=== PATIENT | female | born 1990 | race Caucasian/White ===

== ENCOUNTER 2016-10-10 18:10 | Emergency (ER) | payer SELFPAY ==
[~2016-10-10] VITALS: Ht 170.2 cm; Wt 62.1 kg
[2016-10-10 18:35] VITALS: BP 121/81
--- NOTE | 2016-10-10 19:23 | NUR ---
XRAY AT BEDSIDE
== END 2016-10-10 20:32 | disposition home or self-care (01) ==
LOC: ER 18:12
DX: J45.909 Unspecified asthma, uncomplicated (principal)
CPT/HCPCS: 71010-TC; A4606; Z7610

== ENCOUNTER 2018-03-27 02:43 | Emergency (ER) | payer MEDICAID ==
[~2018-03-27] VITALS: Ht 170.2 cm; Wt 68.0 kg
[2018-03-27 02:47] VITALS: BP 131/72
[2018-03-27] MEDS ORDERED: DEXAMETHASONE SOD PHOSPHATE 10 MG/ML VIAL ONE (02:58)
[2018-03-27] MEDS ORDERED: ONDANSETRON 4 MG TAB.RAPDIS ONE (02:59)
[2018-03-27] MEDS ORDERED: DEXAMETHASONE SOD PHOSPHATE 4 MG/ML VIAL IM ONE (03:00)
[2018-03-27] MEDS ORDERED: ONDANSETRON 4 MG TAB.RAPDIS SL ONE (03:00)
== END 2018-03-27 03:38 | disposition home or self-care (01) ==
LOC: ER 02:48
DX: T78.1XXA Other adverse food reactions, not elsewhere classified, initial encounter (principal); Z91.010 Allergy to peanuts; J45.909 Unspecified asthma, uncomplicated; X58.XXXA Exposure to other specified factors, initial encounter
CPT/HCPCS: 96372; 99283; A4606; J1100; Q0162; Z7610

== ENCOUNTER 2018-09-24 21:33 | Emergency (ER) | payer MEDICAID ==
[~2018-09-24] VITALS: Ht 170.2 cm; Wt 65.8 kg
[2018-09-24 21:33] VITALS: BP 125/84
[2018-09-24] MEDS ORDERED: ALBUTEROL FS 2.5 MG/0.5 ML VIAL.NEB ONE (22:54)
[2018-09-24] MEDS ORDERED: ALBUTEROL FS 2.5 MG/0.5 ML VIAL.NEB NEB ONE (23:00)
== END 2018-09-24 23:30 | disposition home or self-care (01) ==
LOC: ER 21:40
DX: J98.01 Acute bronchospasm (principal); J06.9 Acute upper respiratory infection, unspecified; Z91.010 Allergy to peanuts
CPT/HCPCS: 71045; 94640; 99283; A4606

== ENCOUNTER 2018-09-25 15:51 | Emergency (ER) | payer MEDICAID ==
[~2018-09-25] VITALS: Ht 170.2 cm; Wt 69.4 kg
[2018-09-25 16:12] VITALS: BP 136/77
--- NOTE | 2018-09-25 16:22 | NUR ---
PT SEEN AND EXAMINED BY CORNELIO PIZARRO.
[2018-09-25] MEDS ORDERED: predniSONE 20 MG TABLET ONE (16:28)
[2018-09-25] MEDS: IPRATROPIUM NEB FS 0.5 MG/2.5 ML AMPUL.NEB NEB ONE (16:30)
[2018-09-25] MEDS ORDERED: ALBUTEROL FS 2.5 MG/3 ML VIAL.NEB ONE (16:36)
[2018-09-25] MEDS ORDERED: IPRATROPIUM NEB FS 0.5 MG/2.5 ML AMPUL.NEB ONE (16:36)
--- NOTE | 2018-09-25 16:39 | NUR ---
RT AT BEDSIDE FOR BREATHING TREATMENT.
[2018-09-25] MEDS: ALBUTEROL FS 2.5 MG/3 ML VIAL.NEB NEB ONE (16:41)
[2018-09-25] MEDS: predniSONE 20 MG TABLET PO ONE (16:41)
--- NOTE | 2018-09-25 17:35 | NUR ---
Patient discharged to home in stable condition. Written and verbal after care instructions given. Patient verbalizes understanding of instruction.
== END 2018-09-25 17:36 | disposition home or self-care (01) ==
LOC: ER 15:57
DX: J06.9 Acute upper respiratory infection, unspecified (principal); J45.909 Unspecified asthma, uncomplicated; Z91.010 Allergy to peanuts
CPT/HCPCS: 94640; 99283; A4606; J7512

== ENCOUNTER 2018-10-04 12:51 | Emergency (ER) | payer MEDICAID ==
[~2018-10-04] VITALS: Ht 170.2 cm; Wt 64.4 kg
--- NOTE | 2018-10-04 12:51 | NUR ---
PT BIB SELF FROM HOME FOR ALLERGICE RXN FROM NUTS; PT AAOX4, RESP EVEN AND UNLABORED, NO SOB, NAD NOTED, VSS, PENDING ER PROVIDER EVAL
[2018-10-04] MEDS ORDERED: FAMOTIDINE/PF INJ 20 MG/2 ML VIAL IV ONE ×2 (13:30→13:56)
[2018-10-04] MEDS ORDERED: ALBUTEROL FS 2.5 MG/0.5 ML VIAL.NEB NEB ONE (13:30)
[2018-10-04] MEDS ORDERED: diphenhydrAMINE HCL 50 MG/ML VIAL IV ONE (13:30)
[2018-10-04] MEDS ORDERED: ONDANSETRON HCL/PF 4 MG/2 ML VIAL IVP ONE (13:30)
[2018-10-04] MEDS ORDERED: methylPREDNISolone SOD SUCC 125 MG/2ML VIAL IV ONE (13:30)
[2018-10-04] MEDS ORDERED: ONDANSETRON HCL/PF 4 MG/2 ML VIAL ONE (13:55)
[2018-10-04] MEDS ORDERED: methylPREDNISolone SOD SUCC 125 MG/2ML VIAL ONE (13:55)
[2018-10-04] MEDS ORDERED: diphenhydrAMINE HCL 50 MG/ML VIAL ONE (13:55)
[2018-10-04] MEDS ORDERED: ALBUTEROL FS 2.5 MG/0.5 ML VIAL.NEB ONE (14:06)
--- NOTE | 2018-10-04 15:34 | NUR ---
Patient discharged to home in stable condition. Written and verbal after care instructions given. Patient verbalizes understanding of instruction. IV removed. Catheter intact and site benign. Pressure and 4x4 applied to site. No bleeding noted.
[2018-10-04 16:10] VITALS: BP 121/70
== END 2018-10-04 16:11 | disposition home or self-care (01) ==
LOC: ER 12:55
DX: T78.1XXA Other adverse food reactions, not elsewhere classified, initial encounter (principal); J45.909 Unspecified asthma, uncomplicated; Z91.010 Allergy to peanuts; X58.XXXA Exposure to other specified factors, initial encounter
CPT/HCPCS: 94640; 96374; 96375; 99283; A4606; J1200; J2405; J2930; J3490

== ENCOUNTER 2018-10-19 02:36 | Emergency (ER) | payer MEDICAID ==
[~2018-10-19] VITALS: Ht 170.2 cm; Wt 65.8 kg
--- NOTE | 2018-10-19 02:39 | NUR ---
PT CAME TO EMERGENCY DEPT. COMPLAINING OF SOB THAT WOULD NOT GO AWAY WITH HER NEBULIZER TREATMENT AT HOME. PT AXO4. PT TALKING IN FULL SENTENCES. +COUGH. PT PUT ON THE CROWN PRESSER AND PULSE OX.
--- NOTE | 2018-10-19 02:45 | NUR ---
CALLED RT FOR BREATHING TREATMENT PER MD ORDER
[2018-10-19] MEDS: DEXAMETHASONE SOD PHOSPHATE 4 MG/ML VIAL IM ONE (03:00)
[2018-10-19] MEDS ORDERED: DEXAMETHASONE SOD PHOSPHATE 10 MG/ML VIAL ONE (03:00)
[2018-10-19] MEDS: ALBUTEROL FS 2.5 MG/0.5 ML VIAL.NEB NEB ONE (03:01)
[2018-10-19] MEDS: IPRATROPIUM NEB FS 0.5 MG/2.5 ML AMPUL.NEB NEB ONE (03:01)
[2018-10-19] MEDS ORDERED: ALBUTEROL FS 2.5 MG/0.5 ML VIAL.NEB ONE (03:22)
[2018-10-19] MEDS ORDERED: IPRATROPIUM NEB FS 0.5 MG/2.5 ML AMPUL.NEB ONE (03:22)
--- NOTE | 2018-10-19 03:24 | NUR ---
RT AT BEDSIDE.
--- NOTE | 2018-10-19 03:46 | NUR ---
Patient discharged to home in stable condition. Written and verbal after care instructions given. Patient verbalizes understanding of instruction. PT AMBULATORY WITH STEADY GAIT.
[2018-10-19 03:47] VITALS: BP 115/72
== END 2018-10-19 03:48 | disposition other institution (70) ==
LOC: ER 02:36
DX: J98.01 Acute bronchospasm (principal); Z91.010 Allergy to peanuts
CPT/HCPCS: 94640; 96372; 99285; J1100

== ENCOUNTER 2019-02-16 06:45 | Emergency (ER) | payer MEDICAID ==
[~2019-02-16] VITALS: Ht 170.2 cm; Wt 65.8 kg
--- NOTE | 2019-02-16 07:01 | NUR ---
PT BIB SELF C/O OF ANXIETY ATTACK, PT IS AAOX4, NOT IN RESPIRATORY DISTRESS, V/S STABLE, KEPT RESTED AND COMFORTABLE, WILL CONTINUE TO MONITOR.
[2019-02-16] MEDS ORDERED: LORAZEPAM 1 MG TABLET ONE (07:14)
--- NOTE | 2019-02-16 07:20 | NUR ---
URINE SPECIMEN COLLECTED AND SENT TO LAB.
[2019-02-16 07:26] LABS: BASOPHILS % (AUTO) 0.5 % (0.0-2.0); EOSINOPHILS % (AUTO) 4.9 % (0.0-6.0); HEMATOCRIT 39 % (33-45); HEMOGLOBIN 12.9 g/dL (11.5-14.8); LYMPHOCYTES # (AUTO) 1.7 /CMM (0.8-4.8); LYMPHOCYTES % (AUTO) 41.8 % (20.0-44.0); MEAN CORPUSCULAR HGB CONC 33 g/dl (31.0-36.0); MEAN CORPUSCULAR VOLUME 92 fL (82-100); MONOCYTES # (AUTO) 0.3 /CMM (0.1-1.30); MONOCYTES % (AUTO) 8.4 % (2.0-12.0); NEUTROPHILS # (AUTO) 1.8 /CMM (1.8-8.9); NEUTROPHILS % (AUTO) 44.4 % (43.0-81.0); PLATELET COUNT (AUTO) 231 /CMM (150-450); RED BLOOD CELL COUNT(AUTO) 4.23 MIL/uL (4.0-5.2)
[2019-02-16 07:27] LABS: APPEARANCE,URINE Clear (CLEAR); BILIRUBIN,URINE Negative (NEGATIVE); BLOOD, URINE Negative Ery/uL (NEGATIVE); COLOR,URINE Yellow (YELLOW); KETONES,URINE Trace (NEGATIVE); LEUKOCYTE ESTERASE ,URINE Negative (NEGATIVE); NITRITE, URINE Negative (NEGATIVE); PROTEIN,URINE Negative (NEGATIVE); UGLUCOSE Negative (NEGATIVE)
[2019-02-16] MEDS ORDERED: LORAZEPAM 1 MG TABLET PO ONE (07:30)
[2019-02-16 07:33] LABS: CALCIUM, SERUM 9.1 mg/dL (8.5-10.1); CREATININE 0.8 mg/dL (0.6-1.3); POTASSIUM 3.7 mmol/L (3.5-5.1)
[2019-02-16 07:35] LABS: BACTERIA,URINE None seen /HPF (None Seen); RBC,URINE 0-1 /HPF (0-2); SQUAMOUS EPITHELIAL CELL,UR Few /HPF (None Seen); WBC,URINE 0-2 /HPF (0-3)
--- NOTE | 2019-02-16 08:10 | NUR ---
PT. VERBALIZED UNDERSTANDING OF AFTERCARE INSTRUCTIONS.Patient discharged to home in stable condition. Written and verbal after care instructions given. Patient verbalizes understanding of instruction.
[2019-02-16 08:11] VITALS: BP 114/68
== END 2019-02-16 08:11 | disposition home or self-care (01) ==
LOC: ER 06:50
DX: R00.2 Palpitations (principal); R53.1 Weakness; J45.909 Unspecified asthma, uncomplicated; Z91.010 Allergy to peanuts
CPT/HCPCS: 36415; 80048-TC; 81000-TC; 84702-TC; 85025-TC

== ENCOUNTER 2022-07-12 18:44 | Emergency (ER) | payer MEDICAID ==
[~2022-07-12] VITALS: Ht 170.2 cm; Wt 72.6 kg
[2022-07-12] MEDS ORDERED: KETOROLAC TROMETHAMINE INJ 30 MG/ML VIAL ONE (20:13)
[2022-07-12] MEDS: KETOROLAC TROMETHAMINE INJ 30 MG/ML VIAL IV ONE (20:16)
[2022-07-12 20:26] LABS: BASOPHILS % (AUTO) 0.2 % (0.0-2.0); EOSINOPHILS % (AUTO) 4.5 % (0.0-6.0); HEMATOCRIT 39 % (33-45); HEMOGLOBIN 12.7 g/dL (11.5-14.8); LYMPHOCYTES # (AUTO) 2.4 K/uL (0.8-4.8); MEAN CORPUSCULAR HGB CONC 32 g/dl (31.0-36.0); MEAN CORPUSCULAR VOLUME 88 fL (82-100); MONOCYTES # (AUTO) 0.5 K/uL (0.1-1.30); MONOCYTES % (AUTO) 9.3 % (2.0-12.0); NEUTROPHILS # (AUTO) 1.9 K/uL (1.8-8.9); PLATELET COUNT (AUTO) 236 K/uL (150-450); RED BLOOD CELL COUNT(AUTO) 4.48 MIL/uL (4.0-5.2)
[2022-07-12 20:51] LABS: CALCIUM, SERUM 8.9 mg/dL (8.5-10.1); CARBON DIOXIDE 30 mmol/L (21-32); CHLORIDE 106 mmol/L (98-107); GLUCOSE 91 mg/dL (74-106); SODIUM SERUM 141 mmol/L (136-145); UREA NITROGEN, BLOOD 10 mg/dL (7-18)
[2022-07-12] MEDS ORDERED: IBUP-1953 PO (22:19)
--- NOTE | 2022-07-12 22:29 | NUR ---
Patient discharged to home in stable condition. Written and verbal after care instructions given. Patient verbalizes understanding of instruction.
[2022-07-12 22:30] VITALS: BP 112/70
== END 2022-07-12 22:31 | disposition home or self-care (01) ==
LOC: ER 18:44
DX: R07.89 Other chest pain (principal); J45.909 Unspecified asthma, uncomplicated; Z91.010 Allergy to peanuts; Z91.018 Allergy to other foods
CPT/HCPCS: 99285; 96374; 71045; 93005; 85025; 80048; 36415; 84484; J1885

== ENCOUNTER 2023-02-16 11:19 | Emergency (ER) | payer MEDICAID ==
[~2023-02-16] VITALS: Ht 170.2 cm; Wt 69.4 kg
[~2023-02-16 11:19] MED LIST: IBUP-1953 PO
--- NOTE | 2023-02-16 11:55 | NUR ---
BIBSELF CAME IN DUE TO COUGH X4DAYS CLAIMS HAS ASTHMA AND DENTAL PAIN. COUGH W/ CLEAR PHLEGM, AFEBRILE
--- NOTE | 2023-02-16 12:00 | NUR ---
DR PAN AT BEDSIDE
[2023-02-16] MEDS ORDERED: PENI500T PO (12:02)
[2023-02-16] MEDS ORDERED: BENZ-13 PO (12:02)
[2023-02-16] MEDS ORDERED: IBUP-1955 PO (12:02)
--- NOTE | 2023-02-16 12:22 | NUR ---
Patient discharged to home in stable condition. Written and verbal after care instructions given. Patient verbalizes understanding of instruction.
[2023-02-16 12:23] VITALS: BP 97/68; TEMP 98; O2SAT 100
== END 2023-02-16 12:23 | disposition home or self-care (01) ==
LOC: ER 11:22
DX: J06.9 Acute upper respiratory infection, unspecified (principal); R05.9 Cough, unspecified; R09.81 Nasal congestion; K02.9 Dental caries, unspecified; J45.909 Unspecified asthma, uncomplicated; Z88.8 Allergy status to other drugs, medicaments and biological substances; Z91.010 Allergy to peanuts; Z60.2 Problems related to living alone
CPT/HCPCS: 99283; A4223